=== PATIENT | male | born 1945 | race Caucasian/White ===

== ENCOUNTER 2017-06-04 08:09 | Observation (INO) | payer OTHER ==
--- NOTE | 2017-06-04 08:19 | EDPHY ---
H & P Time Seen by Provider: 06/04/17 08:17 HPI/ROS: CHIEF COMPLAINT: Squeezing in chest HISTORY OF PRESENT ILLNESS: Patient felt very tired yesterday and when he describes as just being "lousy with no energy "but was able to go for a walk yesterday afternoon. When he returned home around 8:00 p.m. he developed a squeezing in his chest which is located in the lower part of his sternum radiating into the back between his shoulder blades. He was able to sleep but when he awakened today still had the pain. Word presents to the ER for evaluation. He notes he did take Cialis on night. Today pain is more in the lower back. Symptoms are not associated with cough or shortness of breath, vomiting or diarrhea, or recent injury or trauma. REVIEW OF SYSTEMS: Eye: no change in vision ENT: no sore throat Cardiac: No palpitations or syncope Pulmonary: no cough or SOB Abdomen: No vomiting or diarrhea Musculoskeletal: HPI, no leg swelling or leg pain Skin: no rash Neuro: No weakness or numbness in extremities Constitutional: no fever : no urinary symptoms A comprehensive 10 point review of systems is otherwise negative aside from elements mentioned in the history of present illness. PAST MEDICAL HISTORY: Includes hypertension, hypothyroid, depression and anxiety. Cholesterol approximately 200. I was able to access his chart on his 's phone and there is a report of an EKG dated 04/21/2017 which was normal, the EKG itself was not available for review. Social history: Nonsmoker, lives in [place]. General Appearance: Alert and conversant, cooperative. Eyes: No scleral icterus. ENT, Mouth: Normal mucous membranes. Respiratory: Normal respiratory effort, breath sounds equal, lungs are clear to auscultation. Cardiovascular: Regular rate and rhythm. Gastrointestinal: Abdomen is soft and non tender. Neurological: Alert, face symmetric, normal motor and sensory in extremities. Skin: Warm and dry, no rashes. Musculoskeletal: No peripheral edema. No calf tenderness. No midline spinal tenderness. Psychiatric: Not agitated. Emergency Department course/MDM: EKG today shows anterior lateral minimal ST depression. Troponin, lipase and LFTs, chest x-ray. 918: HEART score 5, with moderately suspicious history, age, and risk factor of hypertension and cholesterol, and nonspecific EKG changes. Received oral aspirin, plan to admit for further risk stratification. 929: Discussed with Chavez for Phillip, results discussed with patient. He tells me he had 4 days ago differential blood pressure is 170 systolic on the left and 140 on the right. At this point with history of differential blood pressure and chest pain radiating to the back, now in his low back which is different than his usual intermittent low back pain, CTA to evaluate for dissection ordered discussed and consented. 958: CTA personally interpreted as no aortic dissection. 1030: Echo and Dr. Andersen saw patient in ED. Smoking Status: Never smoked Constitutional: Initial Vital Signs Temperature (C) 36.8 C 06/04/17 08:11 Heart Rate 79 06/04/17 08:11 Respiratory Rate 20 06/04/17 08:11 Blood Pressure 187/88 H 06/04/17 08:11 O2 Sat (%) 96 06/04/17 08:11 O2 Delivery Mode Room Air Allergies/Adverse Reactions: tadalafil [From [employer]] Allergy (Verified 06/04/17 08:09) Home Medications: Medication Instructions Recorded Lisinopril/Hydrochlorothiazide 1 tab PO DAILY 06/04/17 [Lisinopril-Hctz 10-12.5 mg Tab] Thyroid [[place] Thyroid 60 MG (*)] 120 mg PO DAILY10 06/04/17 Medical Decision Making - Diagnostics EKG Interpretation: 12-lead EKG interpreted by me; official reading is in trace master. My interpretation is sinus rhythm with PAC and minimal anterolateral ST depression Imaging Results: Imaging Impressions Chest X-Ray 06/04/17 08:34 Impression: No evidence of acute cardiopulmonary abnormality. Imaging: I viewed and interpreted images myself Differential Diagnosis: Differential diagnosis considered for chest pain including but not limited to myocardial ischemia, aortic dissection, pericarditis, pulmonary embolus, chest wall pain, pleural inflammation and pulmonary infectious causes. - Data Points Laboratory Results: Laboratory Results 06/04/17 08:20 06/04/17 08:20 06/04/17 06/04/17 06/04/17 08:20 08:20 08:20 WBC 6.80 10^3/uL 10^3/uL (3.80-9.50) RBC 4.88 10^6/uL 10^6/uL (4.40-6.38) Hgb 15.5 g/dL g/dL (13.7-17.5) Hct 45.9 % % (40.0-51.0) MCV 94.1 fL fL (81.5-99.8) MCH 31.8 pg pg (27.9-34.1) MCHC 33.8 g/dL g/dL (32.4-36.7) RDW 13.7 % % (11.5-15.2) Plt Count 259 10^3/uL 10^3/uL (150-400) MPV 9.7 fL fL (8.7-11.7) Neut % (Auto) 53.9 % % (39.3-74.2) Lymph % (Auto) 32.1 % % (15.0-45.0) [place] % (Auto) 10.9 % % (4.5-13.0) Eos % (Auto) 2.4 % % (0.6-7.6) Baso % (Auto) 0.4 % % (0.3-1.7) Nucleat RBC Rel Count 0.0 % % (0.0-0.2) Absolute Neuts (auto) 3.67 10^3/uL 10^3/uL (1.70-6.50) Absolute Lymphs (auto) 2.18 10^3/uL 10^3/uL (1.00-3.00) Absolute Monos (auto) 0.74 10^3/uL 10^3/uL (0.30-0.80) Absolute Eos (auto) 0.16 10^3/uL 10^3/uL (0.03-0.40) Absolute Basos (auto) 0.03 10^3/uL 10^3/uL (0.02-0.10) Absolute Nucleated RBC 0.00 10^3/uL 10^3/uL (0-0.01) Immature Gran % 0.3 % % (0.0-1.1) Immature Gran # 0.02 10^3/uL 10^3/uL (0.00-0.10) Sodium 142 mEq/L mEq/L (135-145) Potassium 3.9 mEq/L mEq/L (3.5-5.2) Chloride 102 mEq/L mEq/L (97-110) Carbon Dioxide 27 mEq/l mEq/l (22-31) Anion Gap 13 mEq/L mEq/L (8-16) BUN 16 mg/dL mg/dL (7-23) Creatinine 0.9 mg/dL mg/dL (0.7-1.3) Estimated GFR > 60 Glucose 107 mg/dL H mg/dL (70-100) Hemoglobin A1c Pending Estim Average Glucose Pending Calcium 9.5 mg/dL mg/dL (8.5-10.4) Total Bilirubin 1.0 mg/dL mg/dL (0.1-1.4) Conjugated Bilirubin 0.2 mg/dL mg/dL (0.0-0.5) Unconjugated Bilirubin 0.8 mg/dL mg/dL (0.0-1.1) AST 22 IU/L IU/L (17-59) ALT 34 IU/L IU/L (21-72) Alkaline Phosphatase 77 IU/L IU/L (38-126) Troponin I < 0.012 ng/mL ng/mL (0.000-0.034) Total Protein 7.5 g/dL g/dL (6.3-8.2) Albumin 4.5 g/dL g/dL (3.5-5.0) Lipase 89 IU/L IU/L (23-300) Medications Given: Discontinued Medications Aspirin (Aspirin) 324 mg PO EDNOW ONE Stop: 06/04/17 08:35 Last Admin: 06/04/17 08:56 Dose: 324 mg Departure - Departure Disposition: [facility] Inpatient Acute Clinical Impression: Chest pain Qualifiers: Chest pain type: unspecified Qualified Code(s): R07.9 - Chest pain, unspecified Condition: Good
--- NOTE | 2017-06-04 08:26 | CPEKG ---
Heart Rate: 71 RR Interval: 845 P-R Interval: 160 QRSD Interval: 84 QT Interval: 408 QTC Interval: 444 P [place]: 41 QRS [place]: 52 T Wave [place]: 107 EKG Severity - OTHERWISE NORMAL ECG - EKG Impression: SINUS RHYTHM EKG Impression: ATRIAL PREMATURE COMPLEX EKG Impression: MINIMAL ST DEPRESSION, ANTEROLATERAL LEADS Electronically Signed By: Keyon Kidd 04-Jun-2017 08:41:50
[2017-06-04] MEDS ORDERED: ASPIRIN 81 MG CHEWABLE TAB PO ONE (08:34)
[2017-06-04 08:45] LABS: PLATELET COUNT 259 10^3/uL (150-400)
[2017-06-04] MEDS ORDERED: ONDANSETRON 4 MG/2 ML VIAL IVP ONE (09:10)
[2017-06-04] MEDS ORDERED: TAMSULOSIN HCL 0.4 MG CAP PO ONE (09:10)
[2017-06-04] MEDS ORDERED: HYDROmorphONE/DILAUDID 1 MG/ML INJ IVP ONE (09:10)
[2017-06-04] MEDS ORDERED: IOPAMIDOL (ISOVUE 370) 100 ML BTL IV ONE (09:32)
[2017-06-04] MEDS ORDERED: ONDANSETRON 4 MG/2 ML VIAL IVP PRN (09:43)
[2017-06-04] MEDS ORDERED: ACETAMINOPHEN 325 MG TAB PO PRN (09:43)
[2017-06-04] MEDS ORDERED: ONDANSETRON DISINTEGRATING 4 MG TAB PO PRN (09:43)
--- NOTE | 2017-06-04 10:38 | PDCARCONS ---
Cardiology Consult Reason for Consult: Scapular pains Chief Complaint: Scapular pains Requesting Physician: ER team History of Present Illness: Patient is a 71 y/o male with history of HTN (on therapy) as well as HLP (not on therapy with LDL elevated to 155 mg/dL), anxiety, and depression, who presents to [facility] ER with complaints of substernal squeezing and radiation of the discomfort into back/shoulder blades. Symptoms began last night, and given continued discomfort this morning, the patient opted for ER evaluation. Fatigue and malaise were noted yesterday. No fevers or chills, no nausea or emesis. No bowel or bladder changes have been noted, but the patient did report a fair amount of "gas". At present, no cardiovascular complaints were voiced. ECG in the ER with sinus rhythm (71 bpm), and non specific ST/T wave changes. Given elevated blood pressure with "scapular pains" at the time of evaluation, ER did CT to rule out dissection. No dissection was noted, but moderate to severe degree of atherosclerosis was noted. In speaking with the patient, angiography was performed about 4-6 years ago, without interventions performed. The patient is from [place], but has been in [facility] since the end of April this year. was present with the patient in the exam room today. Family history of CAD (father, in 60's, mother with long life to 95). The patient did report that there has been a lot of family stress with 's son (specifics were not discussed), but clear stress was appreciated. Remainder of 12 point review of systems was unremarkable History Information - Allergies/Home Medication List Allergies/Adverse Reactions: tadalafil [From Cialis] Allergy (Verified 06/04/17 08:09) Home Medications: Lisinopril/Hydrochlorothiazide [Lisinopril-Hctz 10-12.5 mg Tab] 1 tab PO DAILY 06/04/17 [Last Taken 06/04/17] Thyroid [[place] Thyroid 60 MG (*)] 120 mg PO DAILY10 06/04/17 [Last Taken ] I have personally reviewed and updated: family history, medical history, social history, surgical history Past Medical History: - Past Medical History hypertension, hyperlipidemia - Surgical History Reports: no pertinent surgical hx - Family History Positive for: CAD, hypertension - Social History Smoking Status: Never smoked Alcohol Use: None Drug Use: None Cardiac History - Cardiac History Cardiac Risk Factors: hypertension (>140/90), lipidemia, age > 65, male Timing/Duration: Hours Severity: moderate Severity Scale: 6 Location: substernal, shoulder (between shoulder blades) Activities at Onset: emotional stress Modifying Factors: improves with: oxygen, rest Associated Symptoms: chest pain, malaise, weakness REBEKAH Risk Evaluation age greater or equal to 65: yes greater or equal to 3 CAD risk factors: yes known CAD(stenosis greater or eqaul to 50%): no ASA use in past 7 days: no severe angina(greater or equal to 2 episodes in 24hrs): no EKG ST changes greater or equal to 0.5mm: no positive cardiac marker: no Total Score: 2 REBEKAH Score: 8.3% risk Physical Exam Physical Exam: Temp Pulse Resp BP Pulse Ox 36.8 C 59 L 18 149/92 H 97 06/04/17 08:11 06/04/17 10:00 06/04/17 10:00 06/04/17 10:00 06/04/17 10:00 Constitutional: no apparent distress, appears nourished, not in pain Eyes: PERRL Ears, Nose, Mouth, Throat: moist mucous membranes, hearing normal, ears appear normal Cardiovascular: regular rate and rhythym, no murmur, rub, or gallop, pulses symmetric bilaterally, No JVD Peripheral Pulses: 2+: dorsalis-pedis (R), dorsalis-pedis (L) Respiratory: no respiratory distress Gastrointestinal: normoactive bowel sounds Skin: warm Musculoskeletal: full muscle strength, no muscle tenderness, normal joint ROM Neurologic: AAOx3, sensation intact bilaterally, CN II-XII Intact Psychiatric: interacting appropriately, not anxious, not encephalopathic Lab and Imaging 06/04/17 08:20 06/04/17 08:20 WBC 6.80 10^3/uL (3.80-9.50) 06/04/17 08:20 RBC 4.88 10^6/uL (4.40-6.38) 06/04/17 08:20 Hgb 15.5 g/dL (13.7-17.5) 06/04/17 08:20 Hct 45.9 % (40.0-51.0) 06/04/17 08:20 MCV 94.1 fL (81.5-99.8) 06/04/17 08:20 MCH 31.8 pg (27.9-34.1) 06/04/17 08:20 MCHC 33.8 g/dL (32.4-36.7) 06/04/17 08:20 RDW 13.7 % (11.5-15.2) 06/04/17 08:20 Plt Count 259 10^3/uL (150-400) 06/04/17 08:20 MPV 9.7 fL (8.7-11.7) 06/04/17 08:20 Neut % (Auto) 53.9 % (39.3-74.2) 06/04/17 08:20 Lymph % (Auto) 32.1 % (15.0-45.0) 06/04/17 08:20 [place] % (Auto) 10.9 % (4.5-13.0) 06/04/17 08:20 Eos % (Auto) 2.4 % (0.6-7.6) 06/04/17 08:20 Baso % (Auto) 0.4 % (0.3-1.7) 06/04/17 08:20 Nucleat RBC Rel Count 0.0 % (0.0-0.2) 06/04/17 08:20 Absolute Neuts (auto) 3.67 10^3/uL (1.70-6.50) 06/04/17 08:20 Absolute Lymphs (auto) 2.18 10^3/uL (1.00-3.00) 06/04/17 08:20 Absolute Monos (auto) 0.74 10^3/uL (0.30-0.80) 06/04/17 08:20 Absolute Eos (auto) 0.16 10^3/uL (0.03-0.40) 06/04/17 08:20 Absolute Basos (auto) 0.03 10^3/uL (0.02-0.10) 06/04/17 08:20 Absolute Nucleated RBC 0.00 10^3/uL (0-0.01) 06/04/17 08:20 Immature Gran % 0.3 % (0.0-1.1) 06/04/17 08:20 Immature Gran # 0.02 10^3/uL (0.00-0.10) 06/04/17 08:20 Sodium 142 mEq/L (135-145) 06/04/17 08:20 Potassium 3.9 mEq/L (3.5-5.2) 06/04/17 08:20 Chloride 102 mEq/L (97-110) 06/04/17 08:20 Carbon Dioxide 27 mEq/l (22-31) 06/04/17 08:20 Anion Gap 13 mEq/L (8-16) 06/04/17 08:20 BUN 16 mg/dL (7-23) 06/04/17 08:20 Creatinine 0.9 mg/dL (0.7-1.3) 06/04/17 08:20 Estimated GFR > 60 06/04/17 08:20 Glucose 107 mg/dL (70-100) H 06/04/17 08:20 Calcium 9.5 mg/dL (8.5-10.4) 06/04/17 08:20 Total Bilirubin 1.0 mg/dL (0.1-1.4) 06/04/17 08:20 Conjugated Bilirubin 0.2 mg/dL (0.0-0.5) 06/04/17 08:20 Unconjugated Bilirubin 0.8 mg/dL (0.0-1.1) 06/04/17 08:20 AST 22 IU/L (17-59) 06/04/17 08:20 ALT 34 IU/L (21-72) 06/04/17 08:20 Alkaline Phosphatase 77 IU/L (38-126) 06/04/17 08:20 Troponin I < 0.012 ng/mL (0.000-0.034) 06/04/17 08:20 Total Protein 7.5 g/dL (6.3-8.2) 06/04/17 08:20 Albumin 4.5 g/dL (3.5-5.0) 06/04/17 08:20 Lipase 89 IU/L (23-300) 06/04/17 08:20 Visualized and Interpreted Chest x-ray results: Yes Chest X-ray Interpretation: no infiltrate, normal Visualized and Interpreted EKG results: Yes EKG Interpretation: Positive for: normal sinsus rhythm, NS ST wave abnormalities Telemetry: normal sinus rhythm Echocardiogram: normal LVEF, normal wall motion. mild TR. moderate atherosclerosis to the aorta. dilation of the aortic root was noted. A/P Assessment: Patient is a 71 y/o male with HTN and untreated HLP, who presents to [facility] with complaints of substernal squeezing. Blood pressure was initially noted to be moderately elevated and secondary complaints of scapular pains led to CT to rule out dissection. No dissection was noted, but moderate atherosclerosis was noted. Review of cholesterol (LDL to 155 mg/dL). ECG with non specific ST/T wave changes, and the first cardiac biomarker (Troponin) was within normal limits. No symptoms reported at present - no chest pains or pressure, no PND or orthopnea. Plan: Would admit the patient for rule out. ECG and serial cardiac enzymes are recommended. Given the atherosclerosis noted on CT of the chest, the patient's age, sex, and cardiovascular risks (HTN and HLP in particular), CV risk calculator is >10% (closer to 15%). Would have patient start regular ASA (81 mg per day). Would also recommend statins for the noted elevation in LDL. Further recommendations to be based on the data as acquired. Would consider MPI testing given likely CAD with risks. At present, without dynamic ECG changes, cardiac biomarker elevation, or symptoms, would refrain from angiography. Continue antihypertensive therapy at present - likely readjustments to therapy given the pressures that have recently been noted ( uncertain how much of the HTN is due to anxiety about symptoms, anxiety with family stressors, and baseline blood pressure elevation). Cardiology will continue to follow this patient while in house.
--- NOTE | 2017-06-04 11:03 | ECHO ---
[email or web address] [address] [address] Main: [phone] Fax: Transthoracic Echocardiogram Name: MEET GEE MR#: [id number] Study Date: 06/04/2017 Study Time: 10:25 AM Date of : 1945 Age: 71 year(s) Height: 185.4 cm (73 in.) Weight: 72.58 kg (160 lb.) BSA: 1.96 m2 Gender: Male Examination: Echo Indication: Chest Pain, HTN Image Quality: Contrast: Requested by: Eliezer Fisher BP: 158 mmHg/88 mmHg Heart Rate: Rhythm: Normal sinus rhythm Indication: Chest Pain, HTN Procedure Staff Flatbed Press Operator: Hang Stanley RDCS Reading Physician: Meet Andersen Requesting Provider: Conclusions: Normal size left ventricle. No LV hypertrophy. Normal global systolic LV function. EF is 72 %. No regional wall motion abnormality. Normal RV function. The left atrium is normal in size. The right atrium is normal in size. There is no mitral valve regurgitation. The aortic valve is tri-leaflet and functions normally. Trivial tricuspid valve regurgitation. The pulmonic valve is normal in appearance and function. The ascending AO appears mildly dilated and is confirmed by CT measuring 4.1cm Mild calcification noted in the aortic arch.. Measurements: Chambers Valvular Assessment AV/MV Valvular Assessment TV/PV Normal Normal Normal Name Value Range Name Value Range Name Value Range Ao Ana (MM): 4.0 cm (2.2 cm-3.7 MV E Vmax: 0.58 m/s ( - ) TR Vmax: 2.48 mm/s ( - ) cm) MV A Vmax: 0.35 m/s ( - ) TR PGmax: 25 mmHg ( - ) IVSd (2D): 0.9 cm (0.6 cm-1.1 MV E/A: 1.66 ( - ) syst. PAP: 30 mmHg ( - ) cm) PV Vmax: 0.79 m/s (0.6 m/s-0.9 LVDd (2D): 4.6 cm (4.2 cm-5.9 m/s) cm) PV PGmax: 2 mmHg ( - ) LVDs (2D): 2.7 cm (2.1 cm-4 cm) LVPWd (2D): 1.0 cm (0.6 cm-1 cm) LVEF (2D): 72 (>=54 %) Patient: MEET GEE Study Date: 06/04/2017 Page 1 of 2 10:25 AM Continued Measurements: Valvular Assessment AV/MV Valvular Assessment TV/PV Name Value Name Value MV E/E' Septal: 6.90 CVP (est.): 5 mmHg MV E/E' Lateral: 5.00 Findings: Left Ventricle: Normal size left ventricle. No LV hypertrophy. Normal global systolic LV function. EF is 72 %. No regional wall motion abnormality. Right Ventricle: Normal size right ventricle. Normal RV function. Left Atrium: The left atrium is normal in size. Right Atrium: The right atrium is normal in size. Mitral Valve: The mitral valve is normal in appearance and function. There is no mitral valve regurgitation. Aortic Valve: The aortic valve is tri-leaflet and functions normally. Tricuspid Valve: The tricuspid valve is normal in appearance and function. Trivial tricuspid valve regurgitation. The pulmonary artery pressure is normal. Pulmonic Valve: The pulmonic valve is normal in appearance and function. Aorta: The ascending AO appears mildly dilated and is confirmed by CT measuring 4.1cm Mild calcification noted in the aortic arch.. Pericardium: No pericardial effusion. (No Signature Object) Patient: MEET GEE Study Date: 06/04/2017 Page 2 of 2 10:25 AM [id number]
--- NOTE | 2017-06-04 11:58 | CPEKG ---
Heart Rate: 56 RR Interval: 1071 P-R Interval: 180 QRSD Interval: 100 QT Interval: 436 QTC Interval: 421 P [place]: 63 QRS [place]: 72 T Wave [place]: 73 EKG Severity - BORDERLINE ECG - EKG Impression: SINUS RHYTHM EKG Impression: BORDERLINE T ABNORMALITIES, ANT-LAT LEADS Electronically Signed By: Keyon Kidd 04-Jun-2017 12:01:58
--- NOTE | 2017-06-04 13:15 | PDGENHP ---
History and Physical - Chief Complaint chest pain - History of Present Illness 71 yo male with hx of HTN and HLD p/w chest pain with radiation into the back and shoulder blades. EKG with non specific ST/T wave changes BP elevated. Given back pain had a CTA chest which is negative for dissection. Afebrile. No SOB, no palpitations, no leg swelling. Non smoker - Past Medical History hypertension, hyperlipidemia - Surgical History Reports: no pertinent surgical hx - Family History Positive for: CAD, hypertension - Social History Non smoker CTA: No acute dissection Mild aneurysmal dilitation of ascending thoracic aorta measuring 4.4 cm History Information - Allergies/Home Medication List Allergies/Adverse Reactions: tadalafil [From [employer]] Allergy (Verified 06/04/17 08:09) Home Medications: Lisinopril/Hydrochlorothiazide [Lisinopril-Hctz 10-12.5 mg Tab] 1 tab PO DAILY 06/04/17 [Last Taken 06/04/17] Thyroid [[place] Thyroid 60 MG (*)] 120 mg PO DAILY10 06/04/17 [Last Taken ] I have personally reviewed and updated: medical history, social history - Past Medical History hypertension, hyperlipidemia - Surgical History Reports: no pertinent surgical hx - Family History Positive for: CAD, hypertension - Social History Smoking Status: Never smoked Alcohol Use: None Drug Use: None Review of Systems Review of Systems: ROS: 10pt was reviewed & negative except for what was stated in HPI & below Physical Exam Physical Exam: Temp Pulse Resp BP Pulse Ox 36.7 C 56 L 16 128/72 H 97 06/04/17 11:23 06/04/17 11:23 06/04/17 11:23 06/04/17 11:23 06/04/17 11:23 Constitutional: no apparent distress Eyes: PERRL, EOMI Ears, Nose, Mouth, Throat: moist mucous membranes Cardiovascular: regular rate and rhythym, No edema Respiratory: no respiratory distress, no rales or rhonchi Gastrointestinal: normoactive bowel sounds Skin: warm Neurologic: AAOx3 Psychiatric: interacting appropriately, not anxious, not encephalopathic Lymph, Heme, Immunologic: No petechiae Lab Data & Imaging Review 06/04/17 08:20 06/04/17 08:20 WBC 6.80 10^3/uL (3.80-9.50) 06/04/17 08:20 RBC 4.88 10^6/uL (4.40-6.38) 06/04/17 08:20 Hgb 15.5 g/dL (13.7-17.5) 06/04/17 08:20 Hct 45.9 % (40.0-51.0) 06/04/17 08:20 MCV 94.1 fL (81.5-99.8) 06/04/17 08:20 MCH 31.8 pg (27.9-34.1) 06/04/17 08:20 MCHC 33.8 g/dL (32.4-36.7) 06/04/17 08:20 RDW 13.7 % (11.5-15.2) 06/04/17 08:20 Plt Count 259 10^3/uL (150-400) 06/04/17 08:20 MPV 9.7 fL (8.7-11.7) 06/04/17 08:20 Neut % (Auto) 53.9 % (39.3-74.2) 06/04/17 08:20 Lymph % (Auto) 32.1 % (15.0-45.0) 06/04/17 08:20 [place] % (Auto) 10.9 % (4.5-13.0) 06/04/17 08:20 Eos % (Auto) 2.4 % (0.6-7.6) 06/04/17 08:20 Baso % (Auto) 0.4 % (0.3-1.7) 06/04/17 08:20 Nucleat RBC Rel Count 0.0 % (0.0-0.2) 06/04/17 08:20 Absolute Neuts (auto) 3.67 10^3/uL (1.70-6.50) 06/04/17 08:20 Absolute Lymphs (auto) 2.18 10^3/uL (1.00-3.00) 06/04/17 08:20 Absolute Monos (auto) 0.74 10^3/uL (0.30-0.80) 06/04/17 08:20 Absolute Eos (auto) 0.16 10^3/uL (0.03-0.40) 06/04/17 08:20 Absolute Basos (auto) 0.03 10^3/uL (0.02-0.10) 06/04/17 08:20 Absolute Nucleated RBC 0.00 10^3/uL (0-0.01) 06/04/17 08:20 Immature Gran % 0.3 % (0.0-1.1) 06/04/17 08:20 Immature Gran # 0.02 10^3/uL (0.00-0.10) 06/04/17 08:20 Sodium 142 mEq/L (135-145) 06/04/17 08:20 Potassium 3.9 mEq/L (3.5-5.2) 06/04/17 08:20 Chloride 102 mEq/L (97-110) 06/04/17 08:20 Carbon Dioxide 27 mEq/l (22-31) 06/04/17 08:20 Anion Gap 13 mEq/L (8-16) 06/04/17 08:20 BUN 16 mg/dL (7-23) 06/04/17 08:20 Creatinine 0.9 mg/dL (0.7-1.3) 06/04/17 08:20 Estimated GFR > 60 06/04/17 08:20 Glucose 107 mg/dL (70-100) H 06/04/17 08:20 Calcium 9.5 mg/dL (8.5-10.4) 06/04/17 08:20 Total Bilirubin 1.0 mg/dL (0.1-1.4) 06/04/17 08:20 Conjugated Bilirubin 0.2 mg/dL (0.0-0.5) 06/04/17 08:20 Unconjugated Bilirubin 0.8 mg/dL (0.0-1.1) 06/04/17 08:20 AST 22 IU/L (17-59) 06/04/17 08:20 ALT 34 IU/L (21-72) 06/04/17 08:20 Alkaline Phosphatase 77 IU/L (38-126) 06/04/17 08:20 Troponin I < 0.012 ng/mL (0.000-0.034) 06/04/17 08:20 Total Protein 7.5 g/dL (6.3-8.2) 06/04/17 08:20 Albumin 4.5 g/dL (3.5-5.0) 06/04/17 08:20 Lipase 89 IU/L (23-300) 06/04/17 08:20 Assessment & Plan Assessment: #Chest pain #Ascending thoracic Aorta aneurysm #HTN #HLD Plan: CP r/o TTE EKG serial trops home meds Hydralazine prn BP mgmt Daily aspirin will need o/p f/u for ascending thoracic aorta aneurysm SCD's Full code
[2017-06-04 23:38] VITALS: RESP 18
[2017-06-05 04:41] LABS: PLATELET COUNT 234 10^3/uL (150-400)
[2017-06-05] MEDS ORDERED: ASPIRIN 81 MG CHEWABLE TAB PO SCH (09:00)
[2017-06-05] MEDS ORDERED: LISINOPRIL/HCTZ 10/12.5 MG 1 EA TAB PO SCH (09:00)
--- NOTE | 2017-06-05 09:54 | SOAPPROG ---
[facility] Progress Note Assessment/Plan: Assessment: A 71-year-old male admitted with atypical chest discomfort and anxiety. His workup has indicated atherosclerosis of his epicardial coronary arteries which was noted on his chest CTA. Historically, he has been evaluated with coronary angiography with no obstructive lesions. His calculated 10 year cardiovascular risks is in excess of 18%. He has ruled out for myocardial infarction. His echocardiogram was normal with normal wall motion. His electrocardiograms have not demonstrated any high risk features. Overall, I think his symptoms are most likely related to dyspepsia. They are likely aggravated by his anxiety and perseveration over his own health. Plan: 1. At this point I think he can be discharged from the hospital. 2. I do think that low-dose aspirin and a proton pump inhibitor (Prilosec OTC) should be added to his medications. 3. As an outpatient we will expedite a stress myocardial perfusion imaging study. 4. Following that procedure he will follow up with Dr. Andersen. 5. I also feel that he is a candidate for long-term statin therapy. This was not started during this hospitalization as he would like to think about it a little bit more and can be discussed at his upcoming visits. 06/05/17 09:52 Subjective: The patient was seen and examined. His chart was reviewed. The case was discussed with Dr. Andersen. Today, he is feeling well. He has not had any recurrent symptoms. He states that he has had a longstanding history of epigastric discomfort which tends to occur usually in the early hours of the morning between 2 and 4 o'clock in the morning. Typically the symptoms are relieved with belching or passing flatus. As he gets older he has become more anxious and nervous about his health overall. As result, his symptoms appear to have escalated here recently. He is very active at his baseline. He likes to hike and exercise regularly. He is able to hike vigorously at altitudes of 2590-7578 ft without precipitating chest discomfort. During this hospitalization cardiac enzymes have been negative. His electrocardiograms have not indicated any significant dynamic changes. His echocardiogram has been normal. In looking at his cardiovascular risk. His calculated 10 year cardiovascular risk is approximately 18%. Apparently a chest CT indicated extensive atherosclerosis of his coronary tree. He has had a previous coronary angiogram approximately 4-6 years ago in [place] that was noted to be normal. Objective: Vital Signs Temp Pulse Resp BP Pulse Ox 36.7 C 67 18 122/63 H 95 06/05/17 07:29 06/05/17 07:29 06/05/17 07:29 06/05/17 08:37 06/05/17 07:29 Laboratory Results 06/05/17 03:40 06/05/17 03:40 06/04/17 06/05/17 06/06/17 05:59 05:59 05:59 Intake Total 1400 Output Total 450 Balance 950 Physical Exam - Physical Exam General Appearance: WD/WN, no apparent distress Neck: non-tender, full range of motion Respiratory: chest non-tender, lungs clear, normal breath sounds, No respiratory distress, No accessory muscle use, No decreased breath sounds Cardiac/Chest: regular rate, rhythm, No edema, No gallop, No JVD Peripheral Pulses: 2+: carotid (R), carotid (L) Abdomen: non-tender, soft Male Genitalia: deferred Rectal: deferred Neuro/Psych: alert, oriented x 3 ICD10 Worksheet Patient Problems: Problems Problem Status Onset Chest pain Acute
[2017-06-05] MEDS ORDERED: THYROID 60 MG TAB PO SCH (10:00)
[2017-06-05 12:24] VITALS: BP 100/67; PULSE 86; TEMP 98.2; O2SAT 92
--- NOTE | 2017-06-05 12:42 | PDDCSUM ---
Discharge Summary Discharge Summary: 71 yo male with HTN admitted with CP. He had negative cardiac enzymes and rule out. Cards consulted. He will have an op stress test with them. He was started on a statin. He was started on a low dose aspiring. NO changes to his home meds were made, he remains on home BP meds. we discussed starting a statin and he agreed. Echo showed preserved LVEF and no wall abnormalities He will f/u with Dr. Car next week. Will also need serial imaging for Ascending thoracic aorta aneurysm #Chest pain #Ascending thoracic Aorta aneurysm #HTN #HLD #?Anxiety: consider SSRI as outpatient #?Gerd Exam: VSS NAD AAOX3 RRR CTAB MED: SEE MED REC F/U: PER ABOVE TOTAL TIME SPENT ON DISCHARGE IS 35 MINS
--- NOTE | 2017-06-05 15:07 | ASDISCHSUM ---
Discharge Information Plan Status:Home with No Needs Medically Cleared to Leave:06/04/2017 Discharge Date:06/05/2017 02:52 PM CM D/C Disposition:Home, Routine, Self-Care ADT D/C Disposition:Home, Routine, Self-Care Projected Discharge Date:06/05/2017 12:00 AM Transportation at D/C: Discharge Delay Reason: Follow-Up Date:06/05/2017 12:00 AM Discharge Slot: Final Diagnosis: Placement Information Patient Contact Information Contact Name:NADEGE Relationship: Address:[phone] Work Phone: City:[place] Alternate Phone: [facility]/Zip Code:[place] [address] Email: Financial Information Financial Class:Medicare Primary Plan Desc:MEDICARE OUTPATIENT Primary Plan Number:[id number] Secondary Plan Desc:[facility] Secondary Plan Number:[id number] Assessment Information Intervention Information
== END 2017-06-05 14:52 | disposition home or self-care (01) ==
LOC: F2W 10:35
PROVIDERS: ADMIT Family Medicine; ATTEND Family Medicine
DX: R07.9 Chest pain, unspecified (principal); I71.2 Thoracic aortic aneurysm, without rupture; I10 Essential (primary) hypertension; E78.5 Hyperlipidemia, unspecified
CPT/HCPCS: 71046; 71275; 93005; 93306; G0378; Q9967

== ENCOUNTER → 2017-06-14 | Outpatient (CLI) | payer OTHER | LOC: BHFA 13:30 | PROVIDERS: ATTEND Internal Medicine Interventional Cardiology | DX: R07.9 Chest pain, unspecified (principal) | CPT/HCPCS: 78452; 93017; A9500 ==